=== PATIENT | female | born 1955 | race Two or more races ===

== ENCOUNTER 2023-06-16 08:29 | Outpatient (AMB) | payer OTHER, SELFPAY ==
--- NOTE | 2023-06-16 08:31 | AM.OFFWIN_ITS ---
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 Pt states both foot are really swollen today and hurt her. Patient Tobacco Use Status: Never used Tobacco Allergies No Known Allergies Allergy (Verified 06/16/23 09:16) Medication List - Last Reconciled 06/16/23 by Koffi Ware MD atenolol 25 mg PO BID blood sugar diagnostic ([employer] Verio test strips) As directed blood-glucose meter ([employer] Verio Flex Meter) As directed calcium carbonate (Oyster Shell Calcium 500) 500 mg PO DAILY cholecalciferol (vitamin D3) 50 mcg PO DAILY famotidine 20 mg PO BID PRN ferrous sulfate 325 mg PO DAILY ibuprofen 800 mg PO TID lancets ([employer] Delica Plus Lancet) As directed Do you need a note to return to daycare/school/sports/work: No 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 She has moved from [facility] and is looking for a primary care provider. Her appointment with the primary care provider is scheduled for September. Meanwhile patient is complaining of swelling and pain in the legs. Her insurance company nurse visited her and has told her she has mild peripheral arterial disease. Patient does not report much pain. Able to function and do activities of daily living. PFSH Social History Patient Tobacco Use Status: Never used Tobacco Physical Exam Vital Signs: Last Vital Signs Temp 96.2 F L 06/16/23 08:34 Pulse 54 06/16/23 08:34 BP 130/74 06/16/23 08:34 Pulse Ox 98 06/16/23 08:34 Oxygen Delivery Method Room Air 06/16/23 08:34 Const Other: Increased body mass index. General: cooperative and healthy appearing Nutritional Appearance: well nourished Orientation/consciousness: patient oriented x3 Limitations: no limitations HEENT Head: Yes normal to inspection Eyes General: appearance normal, both eyes and all related structures Neck Neck: Yes normal visual inspection Chest Chest palpation & inspection: normal palpation of entire chest wall Resp Effort & Inspection: normal respiratory effort Neuro General: patient oriented x3 Extrem Other: Trace edema legs. Assessment & Plan Assessment & Plan (1) Edema of both feet: Code(s): R60.0 - Localized edema Plan: Patient was advised to follow-up with primary care physician. Her symptoms are chronic and needs to be evaluated by a primary care provider. Lasix for a few days for symptomatic relief has been given. Coding Level of Care Code New Pt Level 3 (53579) Diagnoses Edema of both feet R60.0
[2023-06-16 08:34] VITALS: BP 130/74; PULSE 54; TEMP 35.7; O2SAT 98
== END 2023-06-16 09:25 | disposition home or self-care (01) ==
PROVIDERS: PCP Nurse Practitioner Family; Visit Provider Internal Medicine
DX: R60.0 Localized edema (principal)
CPT/HCPCS: 99203